=== PATIENT | male | born 1990 | race Hispanic/Latino ===

== ENCOUNTER 2021-01-17 17:18 | Emergency (ER) | payer SELFPAY ==
[2021-01-17] MEDS ORDERED: Dexamethasone 4 mg/ml Vial ONE (19:13)
== END 2021-01-17 19:24 | disposition home or self-care (01) ==
LOC: ERS 17:18
DX: J02.9 Acute pharyngitis, unspecified (principal)
CPT/HCPCS: 99282; J1100

== ENCOUNTER 2023-06-06 14:41 | Emergency (ER) | payer SELFPAY ==
[2023-06-06 15:46] LABS: SARS-CoV-2 NAA Rapid Test Not Detected (NotDetected)
== END 2023-06-06 16:06 | disposition home or self-care (01) ==
LOC: ERS 14:41
DX: J02.9 Acute pharyngitis, unspecified (principal); Z20.822 Contact with and (suspected) exposure to COVID-19
CPT/HCPCS: 87081; 87430; 99283